=== PATIENT | female | born 1995 | race Caucasian/White ===

== ENCOUNTER 2017-02-03 18:19 | Emergency (ER) | payer OTHER ==
[2017-02-03 18:25] VITALS: BP 128/77; PULSE 104; TEMP 97.4; BMI 30.2
--- NOTE | 2017-02-03 18:27 | PDOC ---
[id number] is a 21 year old female (LMP: January 18) with no PMHx who presents to the ED with RLQ pain since last night. The patient reports she woke up this morning with the pain, but it was mild. She reports the pain has gotten progressively worse throughout the day. She describes the pain as a sharp pain, rating it an 8 out of 10 at its worst. She currently rates it a 6 out of 10. She reports associated current nausea. She reports constipation for two days. She recently began a new diet and has only been eating chicken and vegetables. She reports increased urination, but reports that it may be attributed to her increased lemon water intake. She reports recent exercise. She is an occasional cigarette smoker (1 pack/week) and reports occasional alcohol use (2 drinks/week ). She works with children, and is around sick contacts. <Doris Dejesus - Last Filed: 02/03/17 19:05> <Yobani Rider - Last Filed: 02/12/17 10:29> - General Chief Complaint: Pain, Acute Stated Complaint: RLQ PAIN Time Seen by Provider: 02/03/17 18:26 Past History <Doris Dejesus - Last Filed: 02/03/17 19:05> - Past Medical History Other medical history: PT DENIES - Immunization History Immunization Up to Date: Yes - Psycho/Social/Smoking Cessation Hx Anxiety: No Suicidal Ideation: No Smoking Status: No Smoking History: Never smoked Number of Cigarettes Smoked Daily: 0 Information on smoking cessation initiated: No Hx Alcohol Use: No Drug/Substance Use Hx: No Substance Use Type: None <Yobani Rider - Last Filed: 02/12/17 10:29> - Past Medical History Allergies/Adverse Reactions: Allergies Allergy/AdvReac Type Severity Reaction Status Date / Time No Known Allergies Allergy Verified 02/03/17 18:21 Home Medications: Ambulatory Orders No Home Medications 0 dose .ROUTE UTDICT 08/21/12 Review of Systems - Review of Systems Comments:: 02/03/17 19:05 CONSTITUTIONAL: Absent: fever, no chills, no fatigue EYES: Absent: visual changes ENT: Absent: ear pain, no sore throat CARDIOVASCULAR: Absent: chest pain, no palpitations RESPIRATORY: Absent: cough, no SOB GI: Present: RLQ pain, nausea, constipation Absent: no vomiting, no diarrhea GENITOURINARY: Present: frequency Absent: dysuria, no hematuria MUSCULOSKELETAL: Absent: back pain, no arthralgia, no myalgia SKIN: Absent: rash NEURO: Absent: headache <DejesusDevorah chandraDoris A - Last Filed: 02/03/17 19:05> *Physical Exam - Vital Signs Last Vital Signs Temp Pulse Resp BP Pulse Ox 97.4 F L 104 H 16 128/77 100 02/03/17 18:22 02/03/17 18:22 02/03/17 18:22 02/03/17 18:22 02/03/17 18:22 <AnjelicaDoris Magy - Last Filed: 02/03/17 19:05> - Vital Signs Last Vital Signs Temp Pulse Resp BP Pulse Ox 97.4 F L 104 H 16 128/77 100 02/03/17 18:22 02/03/17 18:22 02/03/17 18:22 02/03/17 18:22 02/03/17 18:22 <Yobani Rider - Last Filed: 02/12/17 10:29> ED Treatment Course - ADDITIONAL ORDERS Additional order review: Laboratory Results 02/03/17 18:32 Urine Color Yellow Urine Appearance Clear Urine pH 5.0 Ur Specific [place] 1.025 Urine Protein Negative Urine Glucose (UA) Negative Urine Ketones 3+ H Urine Blood Negative Urine Nitrite Negative Urine Bilirubin 1+ H Urine Urobilinogen 0.2 e.u/dl Ur Leukocyte Esterase Negative Urine HCG, Qual Negative <AnjelicaDoris A - Last Filed: 02/03/17 19:05> - LABORATORY CBC & Chemistry Diagram: 02/03/17 19:40 02/03/17 19:40 <Yobani Rider - Last Filed: 02/12/17 10:29> Medical Decision Making - Medical Decision Making 02/12/17 10:28 Patient is afebrile. Abdominal exam is benign. There is no distention, bowel sounds are normal. There is no appreciable tenderness to palpation in the right lower quadrant, no guarding or rebound. No CVAT. Main suspicion is ruptured ovarian cyst. Ultrasound pending. Signed out to Dr. Guerrero at 8 PM for further evaluation and treatment. <Yobani Rider - Last Filed: 02/12/17 10:29> *DC/Admit/Observation/Transfer - Attestations Scribe Attestion: 02/03/17 19:06 Documentation prepared by Doris Dejesus, acting as adjunct faculty for medical terminology for Yobani Marshall MD. <Doris Dejesus - Last Filed: 02/03/17 19:05> <Yobani Rider - Last Filed: 02/12/17 10:29> Diagnosis at time of Disposition: Abdominal pain - Discharge Dispostion Disposition: HOME Condition at time of disposition: Stable - Patient Instructions Printed Discharge Instructions: DI for Abdominal Pain-Adult Additional Instructions: Needed for pain you can take Tylenol or Motrin as needed for pain. If you develop a fever, loose you appetite with worsening pain or nausea you should be reevaluated. Return to the emergency department immediately with ANY new, persistent or worsening symptoms. Continue any medications as previously prescribed by your physician. You should follow up with your primary doctor as soon as possible regarding today's emergency department visit. . Please make sure your doctor reviews the results of your emergency evaluation. Thank you for coming to the Emergency Department today for your care. It was a pleasure to see you today. Please note that your evaluation is INCOMPLETE until you follow-up with your doctor.
[2017-02-03 18:49] LABS: URINE APPEARANCE Clear; URINE BILIRUBIN 1+ (NEGATIVE); URINE BLOOD Negative (NEGATIVE); URINE GLUCOSE (UA) Negative (NEGATIVE); URINE KETONE 3+ (NEGATIVE); URINE LEUK ESTERASE Negative (NEGATIVE); URINE NITRITE Negative (NEGATIVE); URINE PROTEIN Negative (NEGATIVE); URINE UROBILINOGEN 0.2 E.U/dl (0.2-1.0)
[2017-02-03 18:51] LABS: URINE COLOR YELLOW
[2017-02-03] MEDS: SODIUM CHLORIDE 1,000 ML IV STA (19:46)
[2017-02-03] MEDS ORDERED: KETOROLAC TROMETHAMINE 30 MG/1 ML VIAL ONE (19:47)
[2017-02-03] MEDS: KETOROLAC TROMETHAMINE 30 MG/1 ML VIAL IVPUSH ONE (19:50)
[2017-02-03 19:56] LABS: BASOPHIL 1.1 % (0-2.0); EOSINOPHIL 2.1 % (0-4.5); MCH 30.7 pg (25.7-33.7); MCHC 33.8 g/dl (32.0-36.0); MEAN CELL VOLUME 90.8 fl (80-96); MEAN PLT VOLUME 8.1 fl (7.5-11.1); PLATELET COUNT 311 K/MM3 (134-434); RDW 12.4 % (11.6-15.6); WHITE BLOOD COUNT 10.5 K/mm3 (4.0-10.8)
[2017-02-03 20:04] LABS: ALBUMIN 4.3 g/dl (3.5-5.0); ALK PHOS 38 U/L (32-92); ANION GAP 8 (8-16); BILIRUBIN,TOTAL 0.5 mg/dl (0.2-1.0); CALCIUM 9.3 mg/dl (8.4-10.2); CO2 24 mmol/L (22-28); CREATININE 0.6 mg/dl (0.6-1.3); GLUCOSE,RANDOM 90 mg/dl (74-106); SGOT/AST 19 U/L (10-42); SGPT/ALT 22 U/L (10-40); TOT PROT 7.3 g/dl (6.4-8.3)
--- NOTE | 2017-02-03 21:47 | PDOC ---
*Physical Exam - Vital Signs Last Vital Signs Temp Pulse Resp BP Pulse Ox 97.4 F L 104 H 16 128/77 100 02/03/17 18:22 02/03/17 18:22 02/03/17 18:22 02/03/17 19:46 02/03/17 18:22 ED Treatment Course - LABORATORY CBC & Chemistry Diagram: 02/03/17 19:40 02/03/17 19:40 - ADDITIONAL ORDERS Additional order review: Laboratory Results 02/03/17 02/03/17 19:40 18:32 Sodium 137 Potassium 4.3 Chloride 105 Carbon Dioxide 24 Anion Gap 8 BUN 16 Creatinine 0.6 Creat Clearance w eGFR > 60 Random Glucose 90 Calcium 9.3 Total Bilirubin 0.5 AST 19 ALT 22 Alkaline Phosphatase 38 Total Protein 7.3 Albumin 4.3 Urine Color Yellow Urine Appearance Clear Urine pH 5.0 Ur Specific [place] 1.025 Urine Protein Negative Urine Glucose (UA) Negative Urine Ketones 3+ H Urine Blood Negative Urine Nitrite Negative Urine Bilirubin 1+ H Urine Urobilinogen 0.2 e.u/dl Ur Leukocyte Esterase Negative Urine HCG, Qual Negative 02/03/17 19:40 RBC 4.21 MCV 90.8 MCHC 33.8 RDW 12.4 MPV 8.1 Neutrophils % 65.0 Lymphocytes % 25.9 Monocytes % 5.9 Eosinophils % 2.1 Basophils % 1.1 - RADIOLOGY Radiology Studies Ordered: Category Date Time Status TRANSVAGINAL ULTRASOUND US [US] Stat Ultrasound 02/03/17 21:09 Ordered - Medications Given in the ED: ED Medications Discontinued Medications Generic Name Dose Route Start Last Admin Trade Name Freq PRN Reason Stop Dose Admin Sodium Chloride 1,000 mls @ 1,000 mls/hr 02/03/17 19:32 02/03/17 19:46 Normal Saline - IV 02/03/17 20:31 1,000 mls/hr ASDIR STA Administration Ketorolac Tromethamine 30 mg 02/03/17 19:32 02/03/17 19:50 Toradol Injection - IVPUSH 02/03/17 19:33 30 mg ONCE ONE Administration Progress Note - Progress Note Progress Note: Care of this patient was transferred to [place] from Dr. Boyd at 8 PM. Patient comes in complaining of right lower quadrant abdominal pain 1 day. Patient is midcycle in her menses. Patient had a workup that was unremarkable including a normal white count and normal chemistries. Patient had a urinalysis that was negative for everything but ketones Patient had an ultrasound that was normal, there was no ovarian pathology, no ovarian torsion or any bladder pathology. Pelvic exam was performed by me there was no vaginal discharge, no odor no cervical motion tenderness no adnexal tenderness. At time of discharge patient's pain had resolved she was hungry and felt much better. Patient was given abdominal pain discharge instructions told to return if symptoms worsen to developed a fever nausea or anorexia. *DC/Admit/Observation/Transfer Diagnosis at time of Disposition: Abdominal pain Qualifiers: Abdominal location: right lower quadrant Qualified Code(s): R10.31 - Right lower quadrant pain - Discharge Dispostion Disposition: HOME Condition at time of disposition: Stable Admit: No - Patient Instructions Printed Discharge Instructions: DI for Abdominal Pain-Adult Additional Instructions: Needed for pain you can take Tylenol or Motrin as needed for pain. If you develop a fever, loose you appetite with worsening pain or nausea you should be reevaluated. Return to the emergency department immediately with ANY new, persistent or worsening symptoms. Continue any medications as previously prescribed by your physician. You should follow up with your primary doctor as soon as possible regarding today's emergency department visit. . Please make sure your doctor reviews the results of your emergency evaluation. Thank you for coming to the Emergency Department today for your care. It was a pleasure to see you today. Please note that your evaluation is INCOMPLETE until you follow-up with your doctor.
== END 2017-02-03 21:51 | disposition home or self-care (01) ==
LOC: FER 18:19
PROC: 3E0333Z Introduction of Anti-inflammatory into Peripheral Vein, Percutaneous Approach (ICD-10-PCS; principal; 2017-02-03)
PROC: 3E0337Z Introduction of Electrolytic and Water Balance Substance into Peripheral Vein, Percutaneous Approach (ICD-10-PCS; 2017-02-03)
DX: R10.31 Right lower quadrant pain (principal)
CPT/HCPCS: 36415; 76856-TC; 80053; 81003; 84703; 85025; 99283-25